=== PATIENT | female | born 1945 | race Caucasian/White ===

== ENCOUNTER → 2016-10-29 | Outpatient (CLI) | payer OTHER | END | disposition home or self-care (01) | LOC: C.LABSPEC 15:29 | PROVIDERS: ATTEND Internal Medicine | DX: R19.4 Change in bowel habit (principal) ==

== ENCOUNTER → 2017-05-19 | Outpatient (CLI) | payer OTHER ==
[2017-05-19 13:43] LABS: ALB/GLOB RATIO 0.9 (0.9-2); ALKALINE PHOSPHATASE 91 U/L (45-117); ALT/SGPT 32 U/L (12-78); AST/SGOT 24 U/L (15-37); BLOOD UREA NITROGEN 26 mg/dl (7-18); BUN/CREATININE RATIO 26.8 (10-20); CALCIUM 9.5 mg/dl (8.5-10.1); CARBON DIOXIDE 26 mmol/L (21-32); CHLORIDE 104 mmol/L (98-107); CHOLESTEROL 224 mg/dl (0-200); CHOLESTEROL/HDL RATIO 3.9; CREATININE 0.97 mg/dl (0.60-1.20); GLUCOSE 96 mg/dl (70-99); HDL CHOLESTEROL 57 mg/dl; POTASSIUM 3.8 mmol/L (3.5-5.1); SODIUM 139 mmol/L (136-145); TRIGLYCERIDES 86 mg/dl (0-150); VERY LOW DENSITY LIPOPROT CALC 17 mg/dl
== END | disposition home or self-care (01) ==
LOC: C.LABSPEC 12:26
PROVIDERS: ATTEND Internal Medicine
DX: E78.5 Hyperlipidemia, unspecified (principal); I10 Essential (primary) hypertension; E55.9 Vitamin D deficiency, unspecified

== ENCOUNTER → 2017-07-11 | Outpatient (CLI) | payer OTHER ==
--- NOTE | 2017-07-14 12:34 | MAMMOGRAPHY REPORT ---
BILATERAL DIGITAL SCREENING MAMMOGRAM WITH CAD: 07/11/2017 CLINICAL HISTORY: Routine screening. Patient has no complaints. TECHNIQUE: Current study was also evaluated with a Computer Aided Detection (CAD) system. Bilateral CC and MLO views were obtained. COMPARISON: Comparison is made to exams dated: 07/10/2016 mammogram and 10/03/2014 mammogram - [facility]. BREAST COMPOSITION: There are scattered areas of fibroglandular density in both breasts. FINDINGS: There is a prominent 12 mm left axillary lymph node, which may represent a morphologically normal axillary lymph node although was not clearly seen on prior exams to confirm stability. Recom mend ultrasound for further evaluation. Circular markers were placed on skin moles including areas of rough patches on the breasts. A mass wi th associated reticular calcifications within the left lower inner quadrant was marked with a mole ma rker and corresponds with a rough patch seen on the skin by the technologist. Other reticular calcif ications are seen within the right inferior breast at approximately 6:00, which may also represent de rmal calcifications although spot magnification and spot compression tomosynthesis views with placeme nt of skin markers is recommended for further evaluation. The remainder of both breasts demonstrate no suspicious masses, calcifications, or areas of uc architect ural distortion. IMPRESSION: ACR BI-RADS CATEGORY 0: INCOMPLETE EVALUATION: NEED ADDITIONAL IMAGING EVALUATION Left axillary lymph node and right breast calcifications, for which additional imaging evaluation is recommended. The patient will be called to schedule an appointment. Approximately 10% of breast cancers are not detected with mammography. A negative mammographic report should not delay biopsy if a clinically suggestive mass is present. Christie Ayala M.D. /:07/11/2017 15:54:58 Natural Science Curator: Monica ALMARAZ)(Noel), [facility] letter sent: Addl Imaging 0 BI-RADS Code: ACR BI-RADS Category 0: Incomplete Evaluation: Need Additional Imaging Evaluation
== END | disposition home or self-care (01) ==
LOC: C.MAMM 08:56
PROVIDERS: ATTEND Internal Medicine
DX: Z12.31 Encounter for screening mammogram for malignant neoplasm of breast (principal); R92.1 Mammographic calcification found on diagnostic imaging of breast

== ENCOUNTER → 2017-07-23 | Outpatient (CLI) | payer OTHER ==
--- NOTE | 2017-07-23 13:38 | MAMMOGRAPHY REPORT ---
UNILATERAL RIGHT DIGITAL DIAGNOSTIC MAMMOGRAM AND TARGETED LEFT ULTRASOUND: 07/23/2017 CLINICAL HISTORY: 71-year-old woman called back from screening mammography for a left axillary lymph node and right breast microcalcifications. Patient has a history of multiple skin keratoses along th e inferior breasts and inframammary folds. These are evident on visual inspection. TECHNIQUE: Spot magnification right CC and ML views were obtained. COMPARISON: Comparison is made to exams dated: 07/11/2017 mammogram, 07/10/2016 mammogram, 10/03/2014 mammogram, 06/19/2006 mammogram, and 09/30/2003 mammogram - [facility]. BREAST COMPOSITION: There are scattered areas of fibroglandular density in the right breast. FINDINGS: On the spot magnification ML view of the right breast, all of the grouped calcifications ar e With the skin of the inferior breast, confirming dermal origin likely associated with the numerous ke ratoses evident on visual inspection. There are no suspicious microcalcifications within the visuali zed right breast. Only minimal vascular calcification. Targeted ultrasound was performed in the axillary tail on the left, to assess for the lymph node seen mammographically. A slightly prominent 1.2 cm lymph node is identified, with a thin cortex measurin g 2.7 mm. The cortical thickness is within the range of normal and when reviewing all available prio r mammograms, a portion of this lymph node may have been present along the posterior aspect of the im age on 10/03/2014. However, given the new visualization of the entire lymph node, a short interval f ollow-up left diagnostic mammogram and repeat targeted ultrasound is recommended to ensure stability in 6 months. IMPRESSION: ACR-BI-RADS CATEGORY 3: PROBABLY BENIGN, TARGETED ULTRASOUND ACR-BI-RADS CATEGORY 3: PRO BABLY BENIGN 1. The groupings of calcifications in the right breast correlate with skin on the spot magnification MLO view, confirming dermal origin likely associated with the numerous visible keratoses. 2. The lymph node in the left axillary tail appears morphologically normal on ultrasound. Given fran t it is newly visualized mammographically, possibly partly imaged in 2013, and the cortex is near the upper limits of normal, a short interval follow-up left diagnostic mammogram and repeat targeted ult rasound is read made it to ensure stability in 6 months. These results and recommendations were discussed with the patient at the time of the exam. Approximately 10% of breast cancers are not detected with mammography. A negative mammographic report should not delay biopsy if a clinically suggestive mass is present. Kiya Frank M.D. ay/:07/23/2017 12:14:28 Manufacturing Associate: Lakeshia ALMARAZ)(Noel), [facility] letter sent: Follow Up Recommended 3 BI-RADS Code: ACR-BI-RADS Category 3: Probably Benign Ultrasound BI-RADS: ACR-BI-RADS Category 3: Pr obably Benign
== END | disposition home or self-care (01) ==
LOC: C.MAMM 10:06
PROVIDERS: ATTEND Internal Medicine
DX: Z12.31 Encounter for screening mammogram for malignant neoplasm of breast (principal); R92.0 Mammographic microcalcification found on diagnostic imaging of breast

== ENCOUNTER → 2017-11-18 | Outpatient (CLI) | payer OTHER | END | disposition home or self-care (01) | LOC: C.PAPS 14:04 | PROVIDERS: ATTEND Internal Medicine | DX: Z12.4 Encounter for screening for malignant neoplasm of cervix (principal); Z12.72 Encounter for screening for malignant neoplasm of vagina; Z78.0 Asymptomatic menopausal state ==

== ENCOUNTER → 2017-11-18 | Outpatient (CLI) | payer OTHER ==
[2017-11-18 13:26] LABS: BASO % 0.5 %; BASO ABS # 0.05 K/uL (0-0.2); EOS ABS # 0.18 K/uL (0-0.5); HEMATOCRIT 40.2 % (37-47); IG# 0.04 K/uL (0.00-0.02); LYMPH % 30.5 %; LYMPH ABS # 2.78 K/uL (1.2-3.4); MEAN CELL VOLUME 90.5 fL (80-100); MEAN CORPUSCULAR HEMOGLOBIN 29.3 pg (25-34); MEAN CORPUSCULAR HGB CONC 32.3 g/dl (32-36); MEAN PLATELET VOLUME 10.2 fL (7.4-10.4); MONO % 6.5 %; MONO ABS # 0.59 K/uL (0.11-0.59); NEUT % 60.1 %; NEUT ABS # 5.47 K/uL (1.4-6.5); PLATELET COUNT 364 K/uL (130-400); RED CELL DISTRIBUTION WIDTH CV 13.3 % (11.5-14.5); RED CELL DISTRIBUTION WIDTH SD 44.1 fL (36.4-46.3); WHITE BLOOD COUNT 9.11 K/uL (4.8-10.8)
[2017-11-18 14:44] LABS: ALBUMIN 3.7 gm/dl (3.4-5.0); ALT/SGPT 35 U/L (12-78); BLOOD UREA NITROGEN 18 mg/dl (7-18); CALCIUM 9.1 mg/dl (8.5-10.1); CARBON DIOXIDE 27 mmol/L (21-32); CHOLESTEROL 198 mg/dl (0-200); CREATININE 0.83 mg/dl (0.60-1.20); GLUCOSE 86 mg/dl (70-99); POTASSIUM 3.6 mmol/L (3.5-5.1); SODIUM 141 mmol/L (136-145)
[2017-11-18 14:48] LABS: ALKALINE PHOSPHATASE 87 U/L (45-117); AST/SGOT 20 U/L (15-37); LDL CHOLESTEROL (DIRECT) 131 mg/dl; TOTAL PROTEIN 7.2 gm/dl (6.4-8.2)
== END | disposition home or self-care (01) ==
LOC: C.LABSPEC 12:40
PROVIDERS: ATTEND Internal Medicine
DX: I10 Essential (primary) hypertension (principal); E78.5 Hyperlipidemia, unspecified; E55.9 Vitamin D deficiency, unspecified

== ENCOUNTER → 2018-01-24 | Outpatient (CLI) | payer OTHER ==
[2018-01-28 13:03] LABS: FECAL OCCULT BLOOD #1 NEGATIVE (NEGATIVE); FECAL OCCULT BLOOD #2 NEGATIVE (NEGATIVE); FECAL OCCULT BLOOD #3 NEGATIVE (NEGATIVE)
== END | disposition home or self-care (01) ==
LOC: C.LABSPEC 12:24
PROVIDERS: ATTEND Internal Medicine
DX: Z12.11 Encounter for screening for malignant neoplasm of colon (principal)

== ENCOUNTER → 2018-02-17 | Outpatient (CLI) | payer OTHER ==
--- NOTE | 2018-02-17 12:31 | DIAGNOSTIC IMAGING REPORT ---
L KNEE 1 OR 2 VIEWS ROUTINE HISTORY: 72 years-old Female L KNEE PAIN subacute left knee pain with history of recent fall COMPARISON: None available TECHNIQUE: 2 views of the left knee FINDINGS: Bones are mildly demineralized. There is increased sclerosis about the lateral tibial plateau with cortical irregularity noted laterally. This suggests a subacute lateral tibial plateau fracture with mild articular cortical depression. Small joint effusion with mild soft tissue swelling about the knee. Distal femur appears intact. 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 IMPRESSION: 1. Increased sclerosis with cortical irregularity about the lateral tibial plateau suggests subacute lateral tibial plateau fracture with mild articular depression. 2. Mild soft tissue swelling with small joint effusion. 3. Mildly demineralized appearance of the bones. The above report was generated using voice recognition software. It may contain grammatical, syntax or spelling errors. Electronically signed by: Roosevelt Jackson M.D. 02/17/2018 12:30 PM Dictated Date/Time: 02/17/2018 12:28 PM
== END | disposition home or self-care (01) ==
LOC: C.RAD 11:39
PROVIDERS: ATTEND Internal Medicine
DX: M85.862 Other specified disorders of bone density and structure, left lower leg (principal); M25.462 Effusion, left knee

== ENCOUNTER → 2018-02-26 | Outpatient (CLI) | payer OTHER ==
--- NOTE | 2018-03-03 08:44 | MAMMOGRAPHY REPORT ---
UNILATERAL LEFT DIGITAL DIAGNOSTIC MAMMOGRAM TOMOSYNTHESIS WITH CAD AND TARGETED LEFT ULTRASOUND: 02/10 CLINICAL HISTORY: Short interval follow-up of left axillary lymph node. TECHNIQUE: Breast tomosynthesis in addition to standard 2D mammography was performed. Current study was also evaluated with a Computer Aided Detection (CAD) system. Left CC and MLO 2D and tomosynthesi s images were obtained. COMPARISON: Comparison is made to exams dated: 07/23/2017 ultrasound, 07/11/2017 mammogram, 07/10/2016 mammogram, 10/03/2014 mammogram, 06/19/2006 mammogram, and 09/30/2003 mammogram - [facility]. BREAST COMPOSITION: There are scattered areas of fibroglandular density in the left breast. FINDINGS: The previously described prominent lymph node in the left axillary region on the MLO view i s stable to less prominent compared to the June 2017 exam, currently measuring 11 x 9 mm, previo usly measuring 12 x 10 mm. additionally, the lymph node was partially visualized on the 2013 exam. T he remainder of the left breast is stable compared to prior exams, without suspicious masses, calcifi cations, or areas of architectural distortion noted. Targeted ultrasound was performed of the left axilla in the region of the previously described lymph node. In the left axillary region, again noted is a morphologically normal left axillary lymph node which is normal oval in shape, has a normal echogenic fatty hilum, and the cortical thickness is unif orm and within normal limits for thickness measuring 2.1 mm. The lymph node measures 11 x 6 mm and i s not significantly changed in size compared to the prior exam. Given the benign morphology and stabi lity, the lymph node is considered benign. IMPRESSION: ACR BI-RADS CATEGORY 2: BENIGN, TARGETED ULTRASOUND ACR BI-RADS CATEGORY 2: BENIGN Morphologically normal 11 mm left axillary lymph node is stable to less prominent compared to the Jun exam and is considered benign given the stability and benign morphology. There is no musa mographic or targeted sonographic evidence of malignancy. Return to annual mammogram screening schedu is recommended due June 2018. The patient has been verbally notified of the results. Approximately 10% of breast cancers are not detected with mammography. A negative mammographic report should not delay biopsy if a clinically suggestive mass is present. Christie Ayala M.D. ah/:02/26/2018 11:39:42 Stone Carriage Operator: Misa KIM(Irene)(M), [facility] letter sent: Normal 1/2 BI-RADS Code: ACR BI-RADS Category 2: Benign Ultrasound BI-RADS: ACR BI-RADS Category 2: Benign
--- NOTE | 2018-03-03 14:27 | CODING QUERY NO DIAGNOSIS ---
TREATMENT RENDERED WITHOUT A DIAGNOSIS To promote full compliance with coding requirements relating to patient care, physician participation is requested in all cases of wood polisher uncertainty. Please assist us with providing a diagnosis/symptom for the test(s) below: A diagnosis/symptom was not documented on your Order. A valid diagnosis/symptom is required to bill all insurances. Please remember that we are unable to code a diagnosis of rule out, probable, possible, questionable, or suspected. Tests that require a diagnosis: DOS: 02/26/18 (Attached order is missing diagnosis) * Diagnostic Mammogram DIAGNOSIS: Provider Signature: Date: Thank you Mignon [facility] Once completed, please kindly fax back to [phone] For questions please call [phone]
== END | disposition home or self-care (01) ==
LOC: C.MAMM 11:04
PROVIDERS: ATTEND Internal Medicine
DX: R92.1 Mammographic calcification found on diagnostic imaging of breast (principal)